=== PATIENT | female | born 1950 | race Caucasian/White ===

== ENCOUNTER 2023-03-02 16:15 | Outpatient (CLI) | payer MEDICARE, SELFPAY ==
--- NOTE | 2023-03-02 16:26 | CT_ITS ---
WS: [id number] CT HEAD NONCONTRAST HISTORY: DEMENTIA TECHNIQUE: Contiguous axial imaging performed through the brain in 2.5 mm imaging. Bone and soft tiss ue windows. Sagittal and coronal reformats reviewed. All CT scans at [facility] use at least one of these dose optimization techniques: automated exposure control; mA and/or kV adjustment per pa tient size (includes targeted exams where dose is matched to clinical indication); or iterative recon struction. DLP: 1043.44 mGy.cm COMPARISON: None available. No acute intracranial hemorrhage, midline shift or mass effect. Mild atrophy and small vessel ischemic disease. Ventricles: Normal size with no hydrocephalus. No inferior displacement the cerebellar tonsils. Paranasal sinuses: As visualized are clear. Mastoid air cells: Well pneumatized. Calvarium and scalp: Skull is intact with no soft tissue edema or swelling. IMPRESSION: 1. Mild atrophy and small vessel ischemic disease. 2. No hemorrhage.
== END 2023-03-02 16:16 | disposition home or self-care (01) ==
PROVIDERS: Visit Provider Physician Assistant
DX: F03.90 Unspecified dementia, unspecified severity, without behavioral disturbance, psychotic disturbance, mood disturbance, and anxiety (principal); I67.89 Other cerebrovascular disease; I67.82 Cerebral ischemia
CPT/HCPCS: 70450

== ENCOUNTER → 2023-03-21 14:27 | Outpatient (BNVA) | payer MEDICARE, SELFPAY | PROVIDERS: Visit Provider Registered Nurse Neonatal Intensive Care | DX: M25.511 Pain in right shoulder (principal) | CPT/HCPCS: 73030 ==

== ENCOUNTER 2024-02-06 02:22 | Emergency (ER) | payer MEDICARE, SELFPAY ==
[2024-02-06 02:31] VITALS: BP 173/63; PULSE 64; RESP 18; TEMP 36.7; O2SAT 95; BMI 17.6
--- NOTE | 2024-02-06 02:39 | CTR_ITS ---
PROCEDURE INFORMATION: Exam: CT Cervical Spine Without Contrast Exam date and time: 02/06/2024 2:51 AM Age: 73 years old Clinical indication: Injury or trauma; Fall; Blunt trauma; Patient HX: Patient fell at home striking occipital against a shelf in kitchen. Small lac to occipital TECHNIQUE: Imaging protocol: Computed tomography of the cervical spine without contrast. Radiation optimization: All CT scans at this facility use at least one of these dose optimization techniques: automated exposure control; mA and/or kV adjustment per patient size (includes targeted exams where dose is matched to clinical indication); or iterative reconstruction. COMPARISON: CT head wo con* [id number] 02/06/2024 2:47 AM RADIATION DOSE METRICS: Total DLP (mGy-cm): 273.47 FINDINGS: Bones/joints: No acute fracture. There is straightening of cervical lordosis. Gross anatomic alignment is maintained. There is vlea-gi-yaccumtm multilevel degenerative disc disease. There is multilevel disc osteophyte bulging without significant spinal canal stenosis. Lungs: Lung apices are normal. Soft tissues: Unremarkable. CT/CT cervical spin wo con* [id number] IMPRESSION: No acute findings.
--- NOTE | 2024-02-06 02:39 | CTR_ITS ---
PROCEDURE INFORMATION: Exam: CT Head Without Contrast Exam date and time: 02/06/2024 2:47 AM Age: 73 years old Clinical indication: Injury or trauma; Fall; Blunt trauma (contusions or hematomas); Patient HX: Patient fell at home striking occipital against a shelf in kitchen. Small lac to occipital TECHNIQUE: Imaging protocol: Computed tomography of the head without contrast. Radiation optimization: All CT scans at this facility use at least one of these dose optimization techniques: automated exposure control; mA and/or kV adjustment per patient size (includes targeted exams where dose is matched to clinical indication); or iterative reconstruction. COMPARISON: CT head wo con* [id number] 03/02/2023 4:37 PM RADIATION DOSE METRICS: Total DLP (mGy-cm): 1055.88 FINDINGS: Brain: There is mild small vessel disease. There is no evidence of acute parenchymal hemorrhage, extra-axial collection, or acute infarction. There is no mass effect, midline shift, or downward herniation. Cerebral ventricles: No ventriculomegaly. Paranasal sinuses: Visualized sinuses are unremarkable. No fluid levels. Mastoid air cells: Visualized mastoid air cells are well aerated. Bones: Unremarkable. No acute fracture. Soft tissues: Unremarkable. CT/CT head wo con* [id number] IMPRESSION: Mild small vessel disease. No evidence of acute intracranial process.
[2024-02-06 02:40] VITALS: BP 164/64; PULSE 57; RESP 18; O2SAT 98
[2024-02-06] MEDS: tetanus-dipt-pertussis 0.5 mL SDV IM (03:43)
--- NOTE | 2024-02-06 04:25 | W.ED.FALL ---
HPI - Fall General: Chief Complaint: Fall Stated Complaint: fall head lac Time Seen by Provider: 02/06/24 02:29 History of Present Illness: Patient presents Emergency Department with complaint of a fall and head laceration. She got up and was tried to walk to the bathroom today without her walker and fell over hitting the back of her head. No other injury. Physical Exam HENMT: HEAD & SCALP: laceration (2 cm laceration to the occipital scalp) Neck/C-Spine: COMMON NORMALS: full ROM and supple Resp: COMMON NORMALS: normal respiratory effort Cardio: COMMON NORMALS: regular rate and regular rhythm RATE: regular rate RHYTHM: regular rhythm : COMMON NORMALS: Yes no CVA tenderness BLADDER/KIDNEY EXAM: Yes no CVA tenderness Back/Pelvis: COMMON NORMALS: no CVA tenderness and no thoracic nor lumbar tenderness Extremity: COMMON NORMALS: normal to inspection Procedures Laceration Laceration 1: Site: scalp (Occipital) Size (cm): 2 Description: linear Skin layer closed with: other ([place]) Size (cm): other Number of sutures: 4 Course Vital Signs: Vital signs: Vital Signs Temperature 98.1 F 02/06/24 02:31 Pulse Rate 57 L 02/06/24 02:40 Respiratory Rate 18 02/06/24 02:40 Blood Pressure 164/64 02/06/24 02:40 Pulse Oximetry 98 02/06/24 02:40 Oxygen Delivery Me thod Room Air 02/06/24 02:40 MDM - Fall Medical Decision Making Patient with fall tonight with laceration to occipital scalp. 4 alla used to close the wound after wound was explored and cleaned. Head CT and cervical spine CTs were negative. Patient instructed to follow-up in 1 week to have alla removed. Lab Data Radiology Impressions Cervical Spine CT 02/06/24 02:39 IMPRESSION: No acute findings. Head CT 02/06/24 02:39 IMPRESSION: Mild small vessel disease. No evidence of acute intracranial process. All radiology interpretation(s) finalized by discharge Discharge Plan Discharge Patient Disposition: Home Clinical Impression: Scalp laceration Condition: Stable Prescriptions: No Action levothyroxine 50 mcg capsule 50 mcg PO DAILY Discharge Orders: Discharge ED (Routine); Ordered 02/06/24 Ordered By: Paul Nichole Referrals: Jen Duggan PA [Primary Care Provider] - Discharge Diet: Usual diet Discharge Activity: Resume usual activity Patient Instructions: Opioid Safety, Pain Management Activity Restrictions/Additional Instructions: Have alla removed in 7 -10 days Coding Level of Care Code ED [employer] Architect for Harinder Coronado
[2024-02-06 04:37] VITALS: PULSE 70; RESP 18; O2SAT 97
[2024-02-06 05:11] VITALS: BP 164/64; PULSE 70; RESP 18; TEMP 36.7; O2SAT 97
== END 2024-02-06 05:14 | disposition home or self-care (01) ==
PROVIDERS: Emergency Provider Emergency Medicine; PCP Physician Assistant
DX: S01.01XA Laceration without foreign body of scalp, initial encounter (principal); W18.39XA Other fall on same level, initial encounter; Z23 Encounter for immunization
CPT/HCPCS: 12001; 70450; 72125; 90471; 90715; 99284

== ENCOUNTER 2024-02-06 12:04 | Emergency (ER) | payer MEDICARE, SELFPAY ==
[2024-02-06 12:15] VITALS: BP 127/57; PULSE 61; RESP 18; TEMP 36.8; O2SAT 98
[2024-02-06 12:33] VITALS: PULSE 61; RESP 14; O2SAT 99
--- NOTE | 2024-02-06 12:53 | ED_ITS ---
HPI - Wound/Laceration 2 General: Chief Complaint: Wound/Laceration Stated Complaint: head wound, fall, loose stitches Time Seen by Provider: 02/06/24 12:14 Source: patient Mode of arrival: ambulatory History of Present Illness: This patient was returned back to the emergency department by her son because they are concerned about bj coming loose from her scalp laceration. She apparently had a ground level fall last evening which is not unusual for her given her stage of dementia. She was evaluated the emergency department to include imaging which were reassuring. Bj were placed in the scalp laceration and during hair washing today they were noted to be somewhat loose so therefore they are back in the emergency department. No additional contributory history at this time. Review of Systems 2 General: Reports: 10 or more systems reviewed and unremarkable except in HPI and below Physical Exam 2 Narrative: EXAM NARRATIVE: The patient is alert. She will respond to her son with some answers that he is familiar with but generally does not carry on conversation. Const: COMMON NORMALS: no acute distress, average body habitus and alert G ENERAL APPEARANCE: cooperative HENMT: COMMON NORMALS: moist oral mucous membranes HEAD & SCALP: no palpable skull fracture HEAD IMAGES: 1. Scalp laceration which is generally approximated measuring approximately 3 cm in length. No active bleeding. Eye: COMMON NORMALS: Equal, round and reactive pupils present and EOMs intact bilaterally PUPIL: Yes Equal, round and reactive pupils present Neck/C-Spine: COMMON NORMALS: full ROM CERVICAL SPINE: Yes cervical ROM normal, No Cervical spine tenderness and No step off deformity Resp: COMMON NORMALS: normal respiratory effort and No use of accessory muscles Extremity: COMMON NORMALS: normal to inspection and full ROM Neuro: COMMON NORMALS: moves all extremities and no focal motor deficits S ENSORIUM/ORIENTATION: Yes alert Skin: COMMON NORMALS: turgor normal GENERAL SKIN EXAM: turgor normal T RAUMA: laceration Procedures Laceration Laceration 1: Site: scalp (Posterior) Size (cm): 3 Description: linear Depth: simple, single layer Local Anesthetic: bupivacaine 0.5% Pre-repair: wound explored Skin layer closed with: other (Prolene) Size (cm): 4-0 Number of sutures: 4 Course 2 Reevaluation(s): Reevaluation #1: As noted skin bj were loose within the hair and have dislodged from the wound approximation. They were removed the area cleansed and inspected and four 4-0 Prolene simple sutures were placed across the skin margins. No active bleeding. Discussed expected course and home care with the son. He voiced understanding. Time: 13:30 Vital Signs: Vital signs: Vital Signs Temperature 98.2 F 02/06/24 12:15 Pulse Rate 61 02/06/24 12:33 Respiratory Rate 14 02/06/24 12:33 Blood Pressure 127/57 02/06/24 12:15 Pulse Oximetry 99 02/06/24 12:33 Oxygen Delivery Me thod Room Air 02/06/24 12:33 MDM - Wound/Laceration Medical Decision Making This patient was brought back to the emergency department as noted in the HPI. Reviewed findings from last evening which included reassuring CT scan of the head and neck. The wound was inspected and skin bj were noted to be partially loose. They were removed and four 4-0 Prolene sutures were replaced across the wound margins with good approximation. The patient has chronic dementia and the son provided most of the communication I instructed him on wound care at home and return precautions. He acknowledged and voiced understanding. No radiology studies performed this visit Discharge Plan Discharge Patient Disposition: Home Clinical Impression: Scalp laceration Qualifiers: Encounter type: subsequent encounter Qualified Code(s): S01.01XD - Laceration without foreign body of scalp, subsequent encounter Condition: Stable Prescriptions: No Action levothyroxine 50 mcg capsule 50 mcg PO DAILY Discharge Orders: Discharge ED (Routine); Ordered 02/06/24 Ordered By: Travis Luis Referrals: Jen Duggan PA [Primary Care Provider] - Discharge Diet: Usual diet Discharge Activity: Resume usual activity Patient Instructions: Opioid Safety, Pain Management Activity Restrictions/Additional Instructions: As we discussed while you are in the emergency department she has 4 sutures in her posterior scalp. Watch for signs of infection to include redness drainage pussy material or other concerns. Should these occur you should return to the emergency department for reevaluation. The sutures or stitches should be removed in 7 days. You may gently rinse her hair in 24 hours and then resume normal bathing. Coding Level of Care Code ED Tongue Lining Stitcher for Harinder Coronado
[2024-02-06 13:47] VITALS: PULSE 58; O2SAT 99
== END 2024-02-06 13:48 | disposition home or self-care (01) ==
PROVIDERS: Emergency Provider Emergency Medicine; PCP Physician Assistant
DX: S01.01XD Laceration without foreign body of scalp, subsequent encounter (principal); F03.90 Unspecified dementia, unspecified severity, without behavioral disturbance, psychotic disturbance, mood disturbance, and anxiety; Z48.02 Encounter for removal of sutures; W19.XXXD Unspecified fall, subsequent encounter
CPT/HCPCS: 12002; 99282

== ENCOUNTER 2024-04-25 19:11 | Emergency (ER) | payer MEDICARE, SELFPAY ==
[2024-04-25 19:41] VITALS: BP 143/66; PULSE 110; RESP 16; TEMP 36.6; O2SAT 99
--- NOTE | 2024-04-25 19:45 | XRR_ITS ---
PROCEDURE INFORMATION: Exam: XR Left Shoulder Exam date and time: 04/25/2024 7:58 PM Age: 74 years old Clinical indication: Injury or trauma; Fall; Blunt trauma (contusions or hematomas); Shoulder; Left; Additional info: Fall pain TECHNIQUE: Imaging protocol: Radiologic exam of the left shoulder. Views: 2 or more views. COMPARISON: CT cervical spin wo con* [id number] 02/06/2024 2:51 AM FINDINGS: Bones/joints: No fracture or dislocation. No AC joint widening or offset. Soft tissues: Normal. XR/XR shoulder LT min 2V* [id number] IMPRESSION: No acute plain radiographic abnormality.
--- NOTE | 2024-04-25 22:05 | ED_ITS ---
HPI - Extremity Problem General: Chief complaint: Extremity Injury, Upper Stated complaint: left arm pain Time Seen by Provider: 04/25/24 21:45 Source: family Mode of arrival: ambulatory Limitations: altered mental status History of Present Illness: Patient is a 74-year-old female with history of end-stage dementia who presents to the emergency department with family due to multiple falls today and presumed left shoulder injury. Family member in room states that he was called today due to these multiple falls, and normally she is not complaining of pain though has complained of pain to the left shoulder. He states she is currently awaiting assignment for placement at a halfway. No reported head injuries or loss of consciousness with these falls. She is not on any blood thinners. No other reported injuries. Patient does not provide any review of systems due to her dementia. She has reportedly been seen here multiple times in the past for falls. MD Complaint: joint pain Onset (ago): hour(s) Location: left and upper extremity (Shoulder) Related Data Home Medications Medication Instructions Recorded Confirmed levothyroxine 50 mcg capsule 50 mcg PO DAILY 03/21/23 03/21/23 Allergies Allergy/AdvReac Type Severity Reaction Status Date / Time No Known Allergies Allergy Verified 04/25/24 19:45 Review of Systems General: Reports: ROS unobtainable due to mental status Physical Exam Const: COMMON NORMALS: no acute distress, average body habitus and alert EXAM LIMITATIONS: altered mental status ORIENTATION/CONSCIOUSNESS: Yes awake OTHER: Demented HENMT: COMMON NORMALS: normocephalic and atraumatic HEAD & SCALP: normoceph alic and atraumatic OTHER: No signs of face head or neck trauma Eye: COMMON NORMALS: Equal, round and reactive pupils present, EOMs intact bilaterally and conjunctivae normal CONJUNCTIVA: Yes conjunctivae normal PUPIL: Yes Equal, round and reactive pupils present Neck/C-Spine: COMMON NORMALS: full ROM and no meningeal signs GENERAL: Yes normal visual inspection Chest: COMMONS NORMALS: normal inspection of the chest and normal palpation of entire chest wall Resp: COMMON NORMALS: normal respiratory effort, No use of accessory muscles and clear to auscultation bilaterally AUSCULTATION: clear to auscultation bilaterally Cardio: COMMON NORMALS: regular rate, regular rhythm, No gallops present (Cardio), No clicks present (Cardio), No murmurs present (Cardio) and No rub (Cardio) RATE: regular rate RHYTHM: regular rhythm Extremity: COMMON NORMALS: normal to inspection, full ROM, capillary refill normal, no joint enlargement and no clubbing, cyanosis or edema NARRATIVE EXTREMITY EXAM: Mild reproducible tenderness to palpation of the anterior left shoulder joint. Radial pulse palpable distally. No obvious signs of dislocation or fracture. Negative elbow examination. Negative hand/digit examination. Neuro: COMMON NORMALS: moves all extremities, no focal motor deficits and no sensory deficits noted SENSORIUM/ORIENTATION: Yes alert MENINGEAL SIGNS: Yes no meningeal signs Skin: COMMON NORMALS: no rashes or lesions noted GENERAL SKIN EXAM: no rashes or lesions noted Course Vital Signs: Vital signs: Vital Signs Temperature 98 F 04/25/24 19:41 Pulse Rate 110 H 04/25/24 19:41 Respiratory Rate 16 04/25/24 19:41 Blood Pressure 143/66 04/25/24 19:41 Pulse Oximetry 99 04/25/24 19:41 MDM - Extremity (Nontraumatic) Medical Decision Making Patient has history of end-stage dementia who is brought in for multiple falls today, normally is reported to never be complaining of pain though today after one of the falls was complaining of some left shoulder pain there was no obvious deformity at time of examination and her distal neurovascular status was intact. X-ray confirmed there was no acute findings, likely this is contusion of the bone/soft tissue's. Patient is in the works for being placed in halfway for monitoring and long-term care/fall prevention. No other questions from the family, patient will be discharged home at this time. Lab Data Radiology Impressions Shoulder X-Ray 04/25/24 19:45 IMPRESSION: No acute plain radiographic abnormality. All radiology interpretation(s) finalized by discharge Discharge Plan Discharge Patient Disposition: Home Clinical Impression: Falls Contusion of left shoulder Qualifiers: Encounter type: initial encounter Qualified Code(s): S40.012A - Contusion of left shoulder, initial encounter Condition: Stable Prescriptions: No Action levothyroxine 50 mcg capsule 50 mcg PO DAILY Discharge Orders: Discharge ED (Routine); Ordered 04/25/24 Ordered By: Noah Serna Referrals: Jen Duggan PA [Primary Care Provider] - Patient Instructions: Contusion in Adults (ED) Activity Restrictions/Additional Instructions: Ice to the shoulder. Alternate Tylenol and ibuprofen. Follow-up with primary care and return with any new or worsening. Coding Level of Care Code ED [place] Curt[employer] Machine Tender for Harinder Coronado
[2024-04-25 22:25] VITALS: PULSE 95; O2SAT 94
== END 2024-04-25 22:27 | disposition home or self-care (01) ==
PROVIDERS: Emergency Provider Physician Assistant; PCP Physician Assistant
DX: S40.012A Contusion of left shoulder, initial encounter (principal); R29.6 Repeated falls; F03.90 Unspecified dementia, unspecified severity, without behavioral disturbance, psychotic disturbance, mood disturbance, and anxiety; W19.XXXA Unspecified fall, initial encounter
CPT/HCPCS: 73030; 99283